=== PATIENT | male | born 2000 | race American Indian/Alaskan Native ===

== ENCOUNTER 2018-11-12 17:35 | Emergency (ER) | payer BC ==
[2018-11-12] MEDS ORDERED: ZOFRAN IV ONE (17:58)
[2018-11-12] MEDS ORDERED: TORADOL IV ONE (17:58)
[2018-11-12] MEDS ORDERED: SUBLIMAZE IV ONE (17:58)
--- NOTE | 2018-11-12 18:04 | Emergency Department Report ---
HPI - General Chief Complaint: Shoulder Injury Time Seen by Provider: 11/12/18 17:48 - HPI HPI: Room 2 The patient is a 18-year-old male presenting with a chief complaint of left shoulder pain. The patient states she has a history of frequent dislocations from his left shoulder and approximately 1 hour prior to arrival while walking his dog's dog pulled at the leash causing pain in his left shoulder. Patient gives his pain score of 8/10. Patient states he hasn't eaten or drank anything since noon Location: Left shoulder Duration: Occurred just prior to arrival Quality: Pain Severity:8/10 Modifying factors: Movement causes pain Context: [see above] Mode of transportation: [not driving] ED Past Medical Hx - Past Medical History Previous Medical History?: Yes Hx Asthma: Yes - Surgical History Past Surgical History?: Yes Additional Surgical History: left shoulder sx in 2014 - Family History Family history: no significant - Social History Smoking Status: Current Some Day Smoker Substance Use Type: None - Medications Home Medications: Home Medications Medication Instructions Recorded Confirmed Last Taken Type HYDROcodone/APAP 5-325 [[place] 1 - 2 each PO Q6HR PRN #14 tablet 11/12/18 Unknown Rx 5/325] Ibuprofen [Motrin 800 MG tab] 800 mg PO Q8HR PRN #20 tablet 11/12/18 Unknown Rx ED Review of Systems ROS: Stated complaint: LFT SHOULDER DISLOCATED Other details as noted in HPI Constitutional: no symptoms reported Respiratory: no symptoms reported Endocrine: no symptoms reported Musculoskeletal: arthralgia Physical Exam - Physical Exam Vital Signs: Vital Signs 11/12/18 17:38 Temperature 97.8 F Pulse Rate 92 H Respiratory 20 Rate Blood Pressure 144/79 O2 Sat by Pulse 97 Oximetry Physical Exam: GENERAL: The patient is well-developed well-nourished male lying on stretcher appearing to be in moderate discomfort. [] HEENT: Normocephalic. Atraumatic. Extraocular motions are intact. Patient has moist mucous membranes. NECK: Supple. Trachea midline CHEST/LUNGS: There is no respiratory distress noted. HEART/CARDIOVASCULAR: Regular. There is no tachycardia. 2+ left radial pulse ABDOMEN: There is no abdominal distention. SKIN: There is no rash. There is no edema. There is no diaphoresis. NEURO: The patient is awake, alert, and oriented. The patient is cooperative. The patient has normal speech. Normal sensation to light touch of the left upper extremity MUSCULOSKELETAL: Deformity of left shoulder consistent with dislocation ED Course Vital Signs 11/12/18 17:38 Temperature 97.8 F Pulse Rate 92 H Respiratory 20 Rate Blood Pressure 144/79 O2 Sat by Pulse 97 Oximetry - Moderate Sedation Indications: fracture/dislocation redu ASA Class: I Mallampati Airway Score: 1 Time of Last PO Intake: 12:00 Preparation: residential monitor applied, pulse oximeter, supplemental O2 applied, suction/airway equipment at bedside, IV secured IV Etomidate Dose (mgs): 12 Complications: none Patient Tolerated Procedure: no complications - Orthopedic Joint Reduction Joint #1 Consent Obtained: verbal consent Time Out Performed: No Side: left Joint Reduction Location: shoulder Analgesia: moderate sedation Shoulder Technique Used (if applicable): traction/counter-traction, external rotation Post-Reduction Neuro Exam: intact Post-Reduction Vascular Exam: intact Post Reduction X-Ray Obtained: Yes Post Reduction X-Ray Results: reduced Splint Applied: Yes Patient Tolerated Procedure: no complications ED Medical Decision Making - Radiology Data Radiology results: image reviewed (left shoulder x-ray #1, left shoulder x-ray #2) interpreted by me: Left shoulder x-ray #1- positive glenohumeral dislocation. No fracture seen Left shoulder x-ray #2 (post reduction)- no dislocation, no fracture - Differential Diagnosis shoulder dislocation, shoulder fracture Critical care attestation.: If time is entered above; I have spent that time in minutes in the direct care of this critically ill patient, excluding procedure time. ED Disposition Clinical Impression: Dislocation of left shoulder joint Disposition: DC-01 TO HOME OR SELFCARE Is pt being admited?: No Does the pt Need Aspirin: No Condition: Stable Instructions: Shoulder Dislocation (ED) Additional Instructions: Return to the emergency department immediately should you develop worsening symptoms, fever, inability to tolerate food or liquid or any other concerns. Prescriptions: HYDROcodone/APAP 5-325 [[place] 5/325] 1 - 2 each PO Q6HR PRN #14 tablet PRN Reason: Pain Ibuprofen [Motrin 800 MG tab] 800 mg PO Q8HR PRN #20 tablet PRN Reason: Pain, Moderate (4-6) Referrals: JOHNSON CAICEDO MD [Staff Physician] - 3-5 Days (Dr. Caicedo is an orthopedic surgeon. Please follow-up with him for further evaluation) Time of Disposition: 18:52
[2018-11-12] MEDS ORDERED: AMIDATE IV ONE ×2 (18:20→18:35)
--- NOTE | 2018-11-12 18:38 | XRay Report ---
FINAL REPORT PROCEDURE: XR SHOULDER 2+V LT TECHNIQUE: Left shoulder, three views HISTORY: pain and deformity/possible dislocation COMPARISON: No prior studies are available for comparison. FINDINGS: There is anterior dislocation of the humeral head. Suture anchors are noted. No fracture is identifie d. Acromioclavicular joint appears intact IMPRESSION: Anterior dislocation of the left humeral head
[2018-11-12 19:10] VITALS: BP 126/86
--- NOTE | 2018-11-12 19:41 | XRay Report ---
FINAL REPORT PROCEDURE: XR SHOULDER 1V LT TECHNIQUE: Single view of the left shoulder HISTORY: status post reduction COMPARISON: 11/12/2018 FINDINGS: There has been reduction of previously seen glenohumeral joint dislocation. No fracture is seen. Sutu re anchors are present. IMPRESSION: There has been reduction of previously seen glenohumeral joint dislocation
== END 2018-11-12 19:05 | disposition home or self-care (01) ==
LOC: ED 17:35
DX: S43.005A Unspecified dislocation of left shoulder joint, initial encounter (principal); X58.XXXA Exposure to other specified factors, initial encounter; Y93.01 Activity, walking, marching and hiking; Y99.8 Other external cause status; Y92.89 Other specified places as the place of occurrence of the external cause
CPT/HCPCS: 23650; 73020; 73030; 96374; 96375; 99283; J1885; J2405; J3010

== ENCOUNTER 2021-02-20 15:38 | Emergency (ER) | payer BC ==
[2021-02-20] MEDS ORDERED: KETOROLAC 30 MG/1 ML INJ IV ONE (15:52)
[2021-02-20] MEDS ORDERED: ONDANSETRON 4 MG/2 ML INJ IV ONE (15:52)
[2021-02-20] MEDS ORDERED: HYDROmorphone 1 MG/1 ML INJ IV ONE (15:52)
--- NOTE | 2021-02-20 16:01 | Emergency Department Report ---
HPI - General Time Seen by Provider: 02/20/21 15:51 - HPI HPI: Room 1 The patient is a 20-year-old male present with a chief complaint of right shoulder pain. Patient states just prior to arrival patient states he was playing basketball when his right shoulder popped out of place. Patient states he has had multiple dislocations in the past. Patient complains of significant pain to the right shoulder ED Past Medical Hx - Past Medical History Previous Medical History?: No Hx Asthma: Yes - Surgical History Additional Surgical History: left shoulder sx in 2015 - Family History Family history: no significant - Social History Smoking Status: Current Some Day Smoker Substance Use Type: None - Medications Home Medications: Home Medications Medication Instructions Recorded Confirmed Last Taken Type HYDROcodone/APAP 5-325 [[place] 1 - 2 each PO Q6HR PRN #14 tablet 11/12/18 Unknown Rx 5/325] Ibuprofen [Motrin 800 MG tab] 800 mg PO Q8HR PRN #20 tablet 11/12/18 Unknown Rx Cyclobenzaprine [Flexeril] 10 mg PO TID PRN #10 tablet 02/20/21 Unknown Rx HYDROcodone/APAP 5-325 [[place] 1 - 2 each PO Q6HR PRN #14 tablet 02/20/21 Unknown Rx 5/325] Ibuprofen [Motrin 800 MG tab] 800 mg PO Q8HR PRN #20 tablet 02/20/21 Unknown Rx ED Review of Systems ROS: Stated complaint: SHOULDER DISLOCATED Other details as noted in HPI Constitutional: no symptoms reported Eyes: denies: eye pain ENT: denies: throat pain Respiratory: no symptoms reported Cardiovascular: denies: chest pain Endocrine: no symptoms reported Gastrointestinal: denies: abdominal pain Genitourinary: denies: dysuria Musculoskeletal: arthralgia. denies: back pain Neurological: denies: headache Physical Exam - Physical Exam Physical Exam: GENERAL: The patient is well-developed well-nourished male lying on stretcher appearing to be in moderate discomfort. [] HEENT: Normocephalic. Atraumatic. Extraocular motions are intact. Patient has moist mucous membranes. NECK: Supple. Trachea midline CHEST/LUNGS: There is no respiratory distress noted. HEART/CARDIOVASCULAR: Regular. There is no tachycardia. 2+ right radial pulse SKIN: There is no rash. There is no edema. There is no diaphoresis. NEURO: The patient is awake, alert, and oriented. The patient is cooperative. The patient has no focal neurologic deficits. The patient has normal speech. Sensation to light touch intact to right upper extremity including deltoid MUSCULOSKELETAL: There is mild deformity of the right shoulder ED Course - Reevaluation(s) Reevaluation #1: 02/20/21 18:18 Patient improved - Moderate Sedation Indications: fracture/dislocation redu ASA Class: I Mallampati Airway Score: 1 Time of Last PO Intake: 14:00 Preparation: teletypesetter monitor applied, pulse oximeter, supplemental O2 applied, suction/airway equipment at bedside IV Etomidate Dose (mgs): 12 Complications: none Patient Tolerated Procedure: well, no complications - Orthopedic Joint Reduction Joint #1 Consent Obtained: verbal consent Time Out Performed: Yes Side: right Joint Reduction Location: shoulder Analgesia: moderate sedation Shoulder Technique Used (if applicable): traction/counter-traction Technique Used: traction/counter-traction Post-Reduction Neuro Exam: intact Post-Reduction Vascular Exam: intact Post Reduction X-Ray Obtained: Yes Post Reduction X-Ray Results: reduced Splint Applied: Yes Patient Tolerated Procedure: well ED Medical Decision Making - Radiology Data Radiology results: report reviewed (Right shoulder x-ray #1, right shoulder x- ray #2), image reviewed (Right shoulder x-ray #1, right shoulder x-ray #2) interpreted by me: Right shoulder x-ray #1-glenohumeral dislocation. No fracture seen Right shoulder x-ray #2-anatomic. No dislocation. No fracture seen [facility] [address] [place] [address] XRay Report Signed Patient: DARRIUS LAZAR MR#: [id number] : 2000 Acct:[id number] Age/Sex: 20 / M ADM Date: 02/20/21 Loc: ED Attending Dr: Ordering Physician: HANS ARGUETA MD Date of Service: 02/20/21 Procedure(s): XR shoulder 2+V RT Accession Number(s): [id number] cc: HANS ARGUETA MD Fluoro Time In Minutes: RIGHT SHOULDER 3 VIEWS INDICATION / CLINICAL INFORMATION: Dislocation during basketball. COMPARISON: None available. FINDINGS: Anterior inferior dislocation of the humeral head Signer Name: Mohamud Morfin MD FACR Signed: 02/20/2021 4:40 PM Workstation Name: [id number] Transcribed By: MS Dictated By: Mohamud Morfin MD Electronically Authenticated By: Mohamud Morfin MD Signed Date/Time: 02/20/211639 DD/ 39 TD/TT: Print Cancel [facility] [address] [place] [address] XRay Report Signed Patient: DARRIUS LAZAR MR#: [id number] : 2000 Acct:[id number] Age/Sex: 20 / M ADM Date: 02/20/21 Loc: ED Attending Dr: Ordering Physician: HANS ARGUETA MD Date of Service: 02/20/21 Procedure(s): XR shoulder 1V RT Accession Number(s): [id number] cc: HANS ARGUETA MD Fluoro Time In Minutes: RIGHT SHOULDER POSTREDUCTION 1 VIEW INDICATION / CLINICAL INFORMATION: Post reduction. COMPARISON: None available. FINDINGS: The humeral head has been relocated into the shoulder joint Signer Name: Mohamud Morfin MD FACR Signed: 02/20/2021 5:49 PM Workstation Name: [id number] Transcribed By: MS Dictated By: Mohamud Morfin MD Electronically Authenticated By: Mohamud Morfin MD Signed Date/Time: 02/20/211748 DD/ 48 TD/TT: Print Cancel - Differential Diagnosis Shoulder dislocation, humerus fracture Critical care attestation.: If time is entered above; I have spent that time in minutes in the direct care of this critically ill patient, excluding procedure time. ED Disposition Clinical Impression: Dislocation of right shoulder joint Disposition: DC-01 TO HOME OR SELFCARE Is pt being admited?: No Does the pt Need Aspirin: No Condition: Stable Instructions: Shoulder Dislocation, [id number] Additional Instructions: Return to the emergency department should you develop worsening symptoms, inability to tolerate food or liquids, high fever or any other concerns Prescriptions: Cyclobenzaprine [Flexeril] 10 mg PO TID PRN #10 tablet PRN Reason: Muscle Spasm Ibuprofen [Motrin 800 MG tab] 800 mg PO Q8HR PRN #20 tablet PRN Reason: Pain, Moderate (4-6) HYDROcodone/APAP 5-325 [[place] 5/325] 1 - 2 each PO Q6HR PRN #14 tablet PRN Reason: Pain Referrals: JOHNSON CAICEDO MD [Staff Physician] - 3-5 Days (Dr. Caicedo is an orthopedic surgeon. Please follow-up with him for further evaluation) Time of Disposition: 18:18
[2021-02-20] MEDS ORDERED: ETOMIDATE 20 MG/10 ML INJ IV ONE (16:07)
--- NOTE | 2021-02-20 16:45 | XRay Report ---
RIGHT SHOULDER 3 VIEWS INDICATION / CLINICAL INFORMATION: Dislocation during basketball. COMPARISON: None available. FINDINGS: Anterior inferior dislocation of the humeral head Signer Name: Mohamud Morfin MD FACFabrice Signed: 02/20/2021 4:40 PM Workstation Name: [id number]
[2021-02-20 17:42] VITALS: BP 122/68
--- NOTE | 2021-02-20 17:53 | XRay Report ---
RIGHT SHOULDER POSTREDUCTION 1 VIEW INDICATION / CLINICAL INFORMATION: Post reduction. COMPARISON: None available. FINDINGS: The humeral head has been relocated into the shoulder joint Signer Name: Mohamud Morfin MD FACFabrice Signed: 02/20/2021 5:49 PM Workstation Name: [id number]
== END 2021-02-20 18:30 | disposition home or self-care (01) ==
LOC: ED 15:38
DX: S43.004A Unspecified dislocation of right shoulder joint, initial encounter (principal); J45.909 Unspecified asthma, uncomplicated; F17.200 Nicotine dependence, unspecified, uncomplicated; Z98.890 Other specified postprocedural states; Z79.1 Long term (current) use of non-steroidal anti-inflammatories (NSAID); Z79.899 Other long term (current) drug therapy; X58.XXXA Exposure to other specified factors, initial encounter; Y93.67 Activity, basketball; Y92.89 Other specified places as the place of occurrence of the external cause; Y99.8 Other external cause status
CPT/HCPCS: 23650; 73020; 73030; 96374; 96375; 99283; J1170; J1885; J2405